=== PATIENT | female | born 1990 | race Caucasian/White ===

== ENCOUNTER 2025-04-29 10:03 | Outpatient (CLI) | payer OTHER, SELFPAY ==
--- NOTE | ~2025-04-29 | US_ITS ---
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 Findings: Uterus: Uterus anteverted 6.8 x 3.3 x 4.7 cm, IUD noted in appropriate location in the uterine cavity. . Endometrium 4 mm. Right Ovary:Right ovary 2.4 x 2.5 x 2.9 cm, no adnexal mass, normal flow. Left Ovary: Left ovary 2.7 x 1.7 x 2.6 cm, no adnexal mass, normal flow. Free Fluid: None Impression: IUD in appropriate location Reviewed, dictated and finalized at location P. [employer]O MECHANICAL TECHNICIAN Impression: IUD in appropriate location
== END 2025-04-29 10:04 | disposition home or self-care (01) ==
LOC: MICIMG 10:05
DX: T83.32XA Displacement of intrauterine contraceptive device, initial encounter (principal)
CPT/HCPCS: 76856